=== PATIENT | female | born 2000 | race Caucasian/White ===

== ENCOUNTER 2024-09-21 19:25 | Emergency (ER) | payer OTHER, SELFPAY ==
[2024-09-21 19:28] VITALS: BP 116/62; PULSE 127; RESP 18; TEMP 37.3; O2SAT 97
--- NOTE | 2024-09-21 20:01 | ED.GENADULT ---
HPI - General Adult General Chief complaint: Nausea/Vomiting/Diarrhea Stated complaint: pain Time Seen by Provider: 09/21/24 20:01 Source: patient Mode of arrival: ambulatory Limitations: no limitations History of Present Illness HPI narrative: 24-year-old white female last menstrual period July 10. This morning at 10:00 a.m. she had some cramping lower abdomen. Pain is constant nausea and vomiting upper food decreased p.o. intake she has vomited up even water today 6 or 7 times had 5 loose nonbloody stools she did a home test around [facility]. Denies any fever cough runny nose sore throat bleeding or bruising lumps or bumps or swelling she has had some lightheadedness and history of vasovagal syncope the last time was last Tuesday a week ago she has had a workup by a neurologist thinks maybe she might have POTS but not definitely. Her neurologist said she had vasovagal syncope.. Last time she passed out before last week was for 5 months ago she is a 4 para 2 AB1 she had a miscarriage. Denies any problems voiding. Denies any other complaints Allergies none Surgeries : D and C wisdom teeth lymph node drainage procedure. Related Data Allergies Allergy/AdvReac Type Severity Reaction Status Date / Time No Known Allergies Allergy Verified 09/21/24 19:59 [facility] History of vasovagal syncope Exam Narrative: White female patient with Mild distress. rating her pain 8/10 pulse of 127 other vital signs were normal.? Head normocephalic, atraumatic.? Eyes conjunctiva pink sclera nonicteric.? Extraocular movements are intact.? Ears externally normal.? TMs are normal. ?Oropharynx is clear with moist mucous membranes without exudates.? Neck is supple nontender no lymphadenopathy.? Back is nontender.? Lungs are clear.? Heart is regular rate and rhythm without murmurs gallops or rubs.? Chest wall nontender. Abdomen is soft With positive bowel sounds. She has suprapubic tenderness without rebound but no hepatosplenomegaly or masses no CVA tenderness no abdominal bruits.? Extremities no cyanosis clubbing or edema.? Skin is warm and dry without rashes or lesions.? Neurological patient is alert and oriented x4.? Motor and sensory grossly intact.? Gait is normal. Course Vital Signs Vital signs: Vital Signs Temperature 37.3 C 09/21/24 19:28 Pulse Rate 127 H 09/21/24 19:28 Respiratory Rate 18 09/21/24 19:28 Blood Pressure 116/62 09/21/24 19:28 Pulse Oximetry 97 09/21/24 19:28 Oxygen Delivery Room Air 09/21/24 19:28 Temperature 36.7 C 09/21/24 22:34 Pulse Rate 79 09/21/24 22:34 Respiratory Rate 18 09/21/24 22:34 Blood Pressure 100/58 L 09/21/24 22:34 Pulse Oximetry 100 09/21/24 22:34 Oxygen Delivery Room Air 09/21/24 22:34 Medical Decision Making MDM Narrative Medical decision making narrative: ?Patient placed in room: 3 her boyfriend Silvestre ? History and physical was performed. drug screen positive for THC, COVID flu RSV negative UA specific gravity of 1.030 3+ ketones trace of leukocyte esterase, test positive magnesium 1.6, WBCs be sees 11.1 the rest of CBC was normal, potassium 3.2 the rest of CMP was normal Independent Historian: boyfriend External Source Review: Differential Dx includes but not limited to: UTI electrolyte imbalance acute gastroenteritis COVID flu RSV ectopic miscarriage Medications given: normal saline 2 L bolus, Zofran 4 mg IV, morphine 2 mg. Patient given 2 g magnesium sulfate. K-Dur 40 mEq and cephalexin 500 P.o.. Her nausea is gone her pain is better. Bedside ultrasound performed by me showed intrauterine with a normal heart activity. Independently Interpreted by me: Shared decision Making: evaluation was discussed with the patient all questions were asked and answered patient agreed with the plan she would take cephalexin 250 4 times a day for the next 7 days increase her fluids by by mouth follow up with her primary care provider and establish wood strip block floor installer for OB care. She would return if she got worse or develops any new symptoms Social Situation Impacting Patients Care: she has not yet established OB doctor yet, marijuana use Discussed with Dr. CAIN DIAGNOSIS: Intrauterine 10 weeks 3 days per by last menstrual. Acute urinary tract infection, dehydration, nausea vomiting diarrhea hypokalemia hypomagnesemia marijuana abuse DISPOSITION : discharge home CONDITION AT DISCHARGE: stable Vital Signs Vital Signs: Vital Signs Temperature 37.3 C 09/21/24 19:28 Pulse Rate 127 H 09/21/24 19:28 Respiratory Rate 18 09/21/24 19:28 Blood Pressure 116/62 09/21/24 19:28 Pulse Oximetry 97 09/21/24 19:28 Oxygen Delivery Room Air 09/21/24 19:28 Temperature 36.7 C 09/21/24 22:34 Pulse Rate 79 09/21/24 22:34 Respiratory Rate 18 09/21/24 22:34 Blood Pressure 100/58 L 09/21/24 22:34 Pulse Oximetry 100 09/21/24 22:34 Oxygen Delivery Room Air 09/21/24 22:34 Lab Data 09/21/24 20:17 09/21/24 20:17 Labs: Lab Results 09/21/24 Range/Units 20:17 WBC 11.0 H (4.8-10.8) K/mm3 RBC 5.08 (4.20-5.40) M/mm3 Hgb 14.9 (12.0-15.0) g/dL Hct 42.0 (35.0-49.0) % MCV 82.7 (78.0-102.0) fL MCH 29.3 (27.0-31.0) pg MCHC 35.5 (32-36) g/dL RDW 12.2 (11.6-14.4) % Plt Count 228 (150-420) K/mm3 MPV 8.3 L (9.2-11.8) fl Sodium 139 (136-145) mmol/L Potassium 3.2 L (3.5-5.1) mmol/L Chloride 103 (98-108) mmol/L Carbon Dioxide 22 (21-32) mmol/L Anion Gap 14 H (4-12) mmol/L BUN 6 L (7-18) mg/dL Creatinine 0.45 L (0.55-1.02) mg/dL Estim Creat Clear Calc 131 ml/min Estimated GFR > 60 (59 - ) Glucose 91 (70-99) mg/dL Calculated Osmolality 285 (285-295) mOsm/kg Lactic Acid 0.6 (0.4-2.0) mmol/L Calcium 8.7 (8.5-10.1) mg/dL Magnesium 1.6 L (1.8-2.4) mg/dL Total Bilirubin 0.6 (0.00-1.00) mg/dL AST 10 L (15-37) U/L ALT 12 L (14-59) U/L Alkaline Phosphatase 50 (46-116) U/L Total Protein 6.6 (6.4-8.2) g/dL Albumin 3.3 L (3.4-5.0) g/dL Lipase 26 (16-77) U/L Urine Color Yellow (Yellow) Urine Appearance Clear (Clear) Urine pH 5.5 (5.0-8.0) Ur Specific [place] >= 1.030 H (1.010-1.020) Urine Protein Trace H (Negative) Urine Glucose (UA) Negative (Negative) Urine Ketones 3+ H (Negative) Ur Blood (Man) Negative (Negative) Urine Nitrate Negative (Negative) Urine Bilirubin 1+ H (Negative) Urine Urobilinogen 0.2 (0.2-1.0) mg/dL Leukocyte Esterase Rfl Trace H (Negative) AMRIK/UL Urine RBC 0-2 (0-2) /hpf Urine WBC 0-3 (0-3) /hpf Ur Squamous Epith Cells Moderate H (Few) /hpf Urine Bacteria 1+ H (None) /hpf Urine Test Positive Urine Opiates Screen Negative (Negative) Urine Methadone Screen Negative (Negative) Ur Barbiturates Screen Negative (Negative) Ur Phencyclidine Scrn Negative (Negative) Ur Amphetamine Screen Negative (Negative) U Benzodiazepines Scrn Negative (Negative) Urine Cocaine Screen Negative (Negative) U Cannabinoids Screen Positive A (Negative) Influenza A (RT-PCR) Negative (Negative) Influenza B (RT-PCR) Negative (Negative) RSV (RT-PCR) Negative (Negative) SARS-CoV-2 RNA (RT-PCR) Negative (Negative) Discharge Plan Discharge Clinical Impression: Acute UTI, Hypomagnesemia, Acute hypokalemia, Acute dehydration, Nausea vomiting and diarrhea Qualifiers: Weeks of gestation: 10 weeks Qualified Code(s): Z3A.10 - 10 weeks gestation of Patient Disposition: Home, Self-Care Condition: Stable Instructions: Antibiotic Form, Dehydration (ED), Gastroenteritis (ED) Additional Instructions: increase your fluid drinking frequent small amounts. . Follow-up with your primary care provider and establish a wood strip block floor installer for your This week. Zofran 4 mg oral dissolvable tablet every 4 hours as needed for nausea vomiting. K-Dur 20 mEq daily for 10 days. Tylenol as needed for pain. Cephalexin 250 4 times a day for 7 days for urinary tract infection. Stop marijuana. Return if you get worse or develops any new symptoms Patient Language: Tristanian Prescriptions: New ondansetron 4 mg tablet,disintegrating 4 mg PO Q4H PRN (Reason: nausea and vomiting) 7 Days Qty: 20 0RF Rx Instructions: give 1st dose 30min before emetogenic chemo cephalexin 250 mg capsule 250 mg PO QID Qty: 20 0RF potassium chloride 20 mEq tablet,ER particles/crystals 20 meq PO DAILY 10 Days Qty: 10 0RF Follow-up/Referrals: UNKNOWN,DOCTOR [Primary Care Provider] - Time of Disposition: 23:20
--- NOTE | 2024-09-21 20:04 | PC.NURSE ---
Pt offered HIV testing and signed refusal form at this time.
--- NOTE | 2024-09-21 20:09 | PC.NURSE ---
covid swab sent to lab
[2024-09-21 20:20] LABS: Hemoglobin 14.9 g/dL (12.0-15.0); Mean Corpuscular HGB Conc 35.5 g/dL (32-36); Mean Corpuscular Hemoglobin 29.3 pg (27.0-31.0); Mean Corpuscular Volume 82.7 fL (78.0-102.0); Mean Platelet Volume 8.3 fl (9.2-11.8); Platelet Count Result 228 K/mm3 (150-420); Red Blood Count 5.08 M/mm3 (4.20-5.40); Red Cell Distribution Width 12.2 % (11.6-14.4)
[2024-09-21 20:26] LABS: Add Urine Microscopic? YES; Appearance Urine Clear (Clear); Bilirubin Urine 1+ (Negative); Blood Urine Negative (Negative); Color Urine Yellow (Yellow); Glucose Urine UA Negative (Negative); Ketones Urine 3+ (Negative); Leukocyte Esterase Ur Trace LEU/UL (Negative); Nitrate Urine Negative (Negative); Pregnancy On Board Control Positive; Protein Urine Trace (Negative); Specific Grav Ur >= 1.030 (1.010-1.020); Urine Pregnancy Test Positive; Urobilinogen Urine 0.2 mg/dL (0.2-1.0); pH Urine 5.5 (5.0-8.0)
[2024-09-21] MEDS: SODIUM CHLORIDE 0.9% IV 1,000 ML 999 ML IRRIGATION (20:26)
[2024-09-21] MEDS: ONDANSETRON INJ 4 MG/2 ML VIAL IV PUSH (20:30)
[2024-09-21 20:35] LABS: Alanine Aminotransferase 12 U/L (14-59); Albumin Level 3.3 g/dL (3.4-5.0); Alkaline Phosphatase 50 U/L (46-116); Anion Gap 14 mmol/L (4-12); Aspartate Amino Transferase 10 U/L (15-37); Bilirubin,Total 0.6 mg/dL (0.00-1.00); Blood Urea Nitrogen 6 mg/dL (7-18); Calcium 8.7 mg/dL (8.5-10.1); Carbon Dioxide 22 mmol/L (21-32); Chloride 103 mmol/L (98-108); Estimated CRCL calculation 131 ml/min; Estimated Glomerular Filt Rate > 60; Glucose 91 mg/dL (70-99); Lipase 26 U/L (16-77); Magnesium 1.6 mg/dL (1.8-2.4); Osmolality Calculated 285 mOsm/kg (285-295); Potassium 3.2 mmol/L (3.5-5.1); Sodium 139 mmol/L (136-145); Total Protein 6.6 g/dL (6.4-8.2)
[2024-09-21 20:38] LABS: Lactic Acid Reflex 0.6 mmol/L (0.4-2.0)
[2024-09-21 20:43] LABS: Bacteria Urine 1+ /hpf; RBC Urine 0-2 /hpf (0-2); Squamous Epithelial Cell Urine Moderate /hpf (Few); WBC Urine 0-3 /hpf (0-3)
[2024-09-21] MEDS: MORPHINE SULFATE (*CRX) 2 MG/ML INJ IV PUSH (20:43)
[2024-09-21 20:44] LABS: Amphetamine Screen Urine Negative (Negative); Barbiturate Screen Urine Negative (Negative); Benzodiazepines Screen Urine Negative (Negative); Cannabinoid Screen Urine Positive (Negative); Cocaine Screen Urine Negative (Negative); Methadone Screen Urine Negative (Negative); Opiate Screen Urine Negative (Negative); Phencyclidine Screen Urine Negative (Negative)
--- NOTE | 2024-09-21 21:03 | PC.NURSE ---
Pt still c/o abd cramping and feeling pain off and on. She states the Morphine is helping a little. Noted infiltrated IV site upon entering room, IV site restarted in Rt FA.
[2024-09-21 21:05] LABS: SARS-CoV-2 RNA PCR Negative (Negative)
[2024-09-21 21:06] LABS: Influenza A QL RT-PCR Negative (Negative); Influenza B QL RT-PCR Negative (Negative); RSV RNA, RT-PCR Negative (Negative)
[2024-09-21] MEDS: MAGNESIUM SULF 2 GM/WATER 50ML 2 GM/50 ML BAG IVPB (21:45)
[2024-09-21] MEDS: SODIUM CHLORIDE 0.9% IV 1,000 ML 999 ML IV CONT (21:50)
[2024-09-21] MEDS: POTASSIUM CHLORIDE 20 MEQ ER TABLET 40 MEQ PO (21:52)
--- NOTE | 2024-09-21 22:30 | PC.NURSE ---
ERP using portable u/s to obtain image of fetus and heartbeat noted.
[2024-09-21 22:34] VITALS: BP 100/58; PULSE 79; RESP 18; TEMP 36.7; O2SAT 100
[2024-09-21] MEDS: CEPHALEXIN 500 MG CAPSULE PO (22:47)
[2024-09-21 23:26] VITALS: BP 100/61; PULSE 80; RESP 18; TEMP 36.6; O2SAT 100
== END 2024-09-21 23:26 | disposition home or self-care (01) ==
PROVIDERS: Emergency Provider Emergency Medicine
DX: O23.41 Unspecified infection of urinary tract in pregnancy, first trimester (principal); N39.0 Urinary tract infection, site not specified; O99.281 Endocrine, nutritional and metabolic diseases complicating pregnancy, first trimester; E86.0 Dehydration; E87.6 Hypokalemia; E83.42 Hypomagnesemia; R11.2 Nausea with vomiting, unspecified; O99.321 Drug use complicating pregnancy, first trimester; F12.10 Cannabis abuse, uncomplicated; Z3A.10 10 weeks gestation of pregnancy
CPT/HCPCS: 36415; 80053; 80307; 81001; 81025; 83605; 83690; 83735; 85027; 87637; 96361; 96365; 96366; 96375; 99284; A9270; J2270; J2405; J3475; J7030

== ENCOUNTER 2025-01-24 10:52 | Emergency (ER) | payer OTHER, SELFPAY ==
--- NOTE | 2025-01-24 11:01 | ED_ITS ---
HPI - Female Genitourinary General Chief complaint: Urogenital-Female Stated complaint: Uti Symptoms Time Seen by Provider: 01/24/25 11:11 Source: patient, RN notes reviewed and old records reviewed Mode of arrival: ambulatory Limitations: no limitations Related Data Allergies Allergy/AdvReac Type Severity Reaction Status Date / Time No Known Allergies Allergy Verified 01/24/25 11:02 Review of Systems Review of Systems: All systems reviewed & are unremarkable except as noted in HPI and below Constitutional: Constitutional: Reports no additional constitutional complaints ENT: Reports system reviewed and no additional complaints, except as documented Cardiovascular: Cardiovascular: Reports no additional cardiovascular complaints, Denies chest pain and Denies dyspnea Respiratory: Respiratory: Reports no additional respiratory complaints, Denies chest congestion, Denies cough and Denies dyspnea Musculoskeletal: Musculoskeletal: Reports no additional musculoskeletal complaints Integumentary/Breasts: Skin/Breast: Reports system reviewed and no additional complaints, except as docu PMFSH Comments At the time of my signature, I reviewed and agree with the nursing past medical, surgical, social, and family history. There is no relevant family history pertinent to the patient complaint. Exam Const: General: cooperative, healthy appearing, comfortable, no acute distress, well developed, alert and well nourished Nutritional Appearance: well nourished Orientation/consciousness: patient oriented x3 Limitations: no limitations HENMT: Head: normal to inspection Eyes: General: appearance normal, both eyes and all related structures Alignment and Position: alignment normal Neck: Neck: normal visual inspection, full ROM, no lymphadenopathy and no meningeal signs Chest: Chest palpation & inspection: normal inspection of the chest Resp: Effort & Inspection: normal respiratory effort and able to speak in complete sentences Auscultation: clear to auscultation bilaterally, no crackles, no rales, no rhonchi and no wheezes Cardio: Rate: regular rate Skin: General skin exam: normal color and no rashes or lesions noted Neuro: General: patient oriented x3, gait normal, moves all extremities and no meningeal signs Cognition (Neuro): normal cognition Speech: normal speech Gait exam (Neuro): Normal gait present Extrem: General: normal to inspection, full ROM, capillary refill normal and normal gait Psych: Appearance: grossly normal and well kempt Mental Status: mental status grossly normal Speech and movement: Normal speech and movement present and Clear speech present Affect: normal affect Attitude: cooperative Course Course Level of Care: Express Care Visit Vital Signs Vital signs: Vital Signs Temperature 97.8 F 01/24/25 11:09 Pulse Rate 69 01/24/25 11:09 Respiratory Rate 18 01/24/25 11:09 Blood Pressure 102/66 01/24/25 11:09 Pulse Oximetry 99 01/24/25 11:09 Temperature 97.8 F 01/24/25 11:09 Pulse Rate 69 01/24/25 11:09 Respiratory Rate 18 01/24/25 11:09 Blood Pressure 102/66 01/24/25 11:09 Pulse Oximetry 99 01/24/25 11:09 Reviewed MDM - Female Genitourinary Lab Data Labs: Lab Results 01/24/25 01/24/25 Range/Units 11:08 11:22 POC Urine Color [place] POC Urine Clarity Cloudy POC Urine pH 6.0 POC Ur Specif [place] 1.030 POC Urine Protein 2+ (Negative) POC Ur Glucose (UA) Negative (Negative) POC Urine Ketones 3+ (Negative) POC Urine Blood Trace (Negative) POC Urine Nitrite Negative (Negative) POC Urine Bilirubin 2+ (Negative) POC Urine Urobilinogen 0.2 POC U Leukocyte Esteras Negative (Negative) POC Urine HCG, Qual Negative (Negative) POC Grp A Strep Screen Positive (Negative) Critical Care Time Critical Care Time Critical Care Time: No Discharge Plan Discharge Clinical Impression: Strep pharyngitis Patient Disposition: Home Condition: Stable Instructions: Antibiotic Form, Strep Throat (ED) Additional Instructions: After 24-48 hours on antibiotics, Throw the toothbrush away, start using a new one. Please be sure to wash bed linens especially pillow cases. Repeat once you finish the antibiotics. Do not share drinks. Take Motrin alternating with Tylenol for pain and fever alternating every 4 hours. Increase fluids, avoid caffeine. Give plenty of water, juice, Gatorade, Pedialyte, ice pops in Jell-O Follow up with Primary provider if not getting better this week For new or worsening symptoms go directly to the emergency room Patient Language: Ma[place] Prescriptions: New amoxicillin 875 mg tablet 875 mg PO Q12H Qty: 20 0RF Follow-up/Referrals: PHYSICIAN,COIN [employer]SE FRAMER [Primary Care Provider] - Stand Alone Forms: Work/School Release IP Time of Disposition: 11:23
[2025-01-24 11:09] VITALS: BP 102/66; PULSE 69; RESP 18; TEMP 36.6; O2SAT 99
[2025-01-24 11:11] LABS: BEDSIDEPREGUCG Negative (Negative); EDUAAPPEAR Cloudy; EDUABILI 2+ (Negative); EDUABLOOD Trace (Negative); EDUACOLOR1 Amber; EDUAGLUCOSE Negative (Negative); EDUAKETONE 3+ (Negative); EDUALEUKO Negative (Negative); EDUANITRATE Negative (Negative); EDUAPROTEIN 2+ (Negative); EDUAUROBILI 0.2
[2025-01-24 11:24] LABS: EDSTREPNEGPOS1 Positive (Negative)
== END 2025-01-24 11:29 | disposition home or self-care (01) ==
PROVIDERS: Emergency Provider Nurse Practitioner
DX: J02.0 Streptococcal pharyngitis (principal)
CPT/HCPCS: 81003; 81025; 87880; 99213; G0463